=== PATIENT | female | born 1955 | race Two or more races ===

== ENCOUNTER 2022-09-21 21:09 | Inpatient (IN) | payer MEDICAID ==
[~2022-09-21] VITALS: Ht 157.5 cm; Wt 65.8 kg
--- NOTE | 2022-09-21 21:30 | NUR ---
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 TOLERATING R/A WELL WITH NO RESP DISTRESS. RR EVEN AND NON LABORED. AMBULATORY WITH STEADY GAIT. CONNECTED PT TO POX AND MONITOR. SAFETY MEASURES IN PLACE.
[2022-09-21] MEDS ORDERED: ONDANSETRON HCL/PF 4 MG/2 ML VIAL ONE (21:36)
--- NOTE | 2022-09-21 21:51 | NUR ---
LAC #18G S/L BLOOD COLLECTED AND SENT TO LAB
[2022-09-21 21:54] LABS: BASOPHILS # (AUTO) 0.1 K/uL (0.0-0.2); BASOPHILS % (AUTO) 0.4 % (0.0-2.0); EOSINOPHILS % (AUTO) 0.9 % (0.0-6.0); HEMATOCRIT 34 % (33-45); HEMOGLOBIN 11.3 g/dL (11.5-14.8); LYMPHOCYTES # (AUTO) 2.8 K/uL (0.8-4.8); LYMPHOCYTES % (AUTO) 21.1 % (20.0-44.0); MEAN CORPUSCULAR HGB CONC 33 g/dl (31.0-36.0); MEAN CORPUSCULAR VOLUME 93 fL (82-100); MONOCYTES # (AUTO) 0.7 K/uL (0.1-1.30); NEUTROPHILS # (AUTO) 9.5 K/uL (1.8-8.9); NEUTROPHILS % (AUTO) 72.6 % (43.0-81.0); PLATELET COUNT (AUTO) 323 K/uL (150-450); WHITE BLOOD COUNT (AUTO) 13.1 K/uL (4.3-11.0)
[2022-09-21] MEDS ORDERED: ONDANSETRON HCL/PF 4 MG/2 ML VIAL IVP ONE (22:00)
[2022-09-21] MEDS ORDERED: IV NS 0.9% 1,000 ML BAG IV ONE (22:00)
[2022-09-21 22:13] LABS: ALANINE AMINOTRANSFERASE 13 U/L (12-78); ALBUMIN 3.4 g/dL (3.4-5.0); ALKALINE PHOSPHATASE 75 U/L (46-116); ASPARTATE AMINOTRANSFERASE 16 U/L (15-37); BILIRUBIN,DIRECT 0.1 mg/dL (0.0-0.2); BILIRUBIN,TOTAL 0.3 mg/dL (0.2-1.0); CARBON DIOXIDE 25 mmol/L (21-32); CHLORIDE 103 mmol/L (98-107); CREATININE 0.8 mg/dL (0.6-1.3); GLUCOSE 208 mg/dL (74-106); LIPASE 115 U/L (73-393); POTASSIUM 3.2 mmol/L (3.5-5.1); SODIUM SERUM 137 mmol/L (136-145); TOTAL PROTEIN, SERUM 6.3 g/dL (6.4-8.2); UREA NITROGEN, BLOOD 12 mg/dL (7-18)
--- NOTE | 2022-09-21 22:22 | NUR ---
URINE COLLECTED AND SENT TO LAB
[2022-09-21 22:54] LABS: BILIRUBIN,URINE NEGATIVE (NEGATIVE); COLOR,URINE YELLOW (YELLOW); LEUKOCYTE ESTERASE ,URINE NEGATIVE (NEGATIVE); NITRITE, URINE NEGATIVE (NEGATIVE); PROTEIN,URINE TRACE mg/dl (NEGATIVE); UGLUCOSE NEGATIVE (NEGATIVE); UROBILINOGEN,URINE 0.2 EU/dL (0.2)
[2022-09-21 22:59] LABS: BACTERIA,URINE Rare /HPF (None Seen); RBC,URINE 0-2 /HPF (0-2); SQUAMOUS EPITHELIAL CELL,UR Few /HPF (None Seen); WBC,URINE 0-2 /HPF (0-3)
--- NOTE | 2022-09-21 23:27 | NUR ---
UPDATED FOZIA (SON) [phone]
--- NOTE | 2022-09-22 00:42 | NUR ---
LENS COATER AT PT'S BEDSIDE
--- NOTE | 2022-09-22 01:33 | NUR ---
COVID ANTIGEN SWAB COLLECTED AND SENT TO LAB
[2022-09-22] MEDS ORDERED: POTASSIUM CHLORIDE 20 MEQ TAB.PRT.SR PO ONE ×2 (01:41→02:00)
[2022-09-22] MEDS ORDERED: ONDANSETRON HCL/PF 4 MG/2 ML VIAL IVP PRN (03:00)
[2022-09-22] MEDS ORDERED: MAGNESIUM HYDROXIDE 30 ML UDC PO PRN (03:00)
[2022-09-22] MEDS ORDERED: Z GUARD REMEDY 4 OZ OINT TP PRN (03:00)
[2022-09-22] MEDS ORDERED: HYDROCODONE/APAP 5/325MG TABLET PO PRN (03:00)
[2022-09-22] MEDS ORDERED: MAG HYDROX/AL HYDROX/SIMETH 30 ML UDC PO PRN (03:00)
[2022-09-22] MEDS ORDERED: LORAZEPAM INJ 2 MG/ML VIAL IV PRN (03:00)
[2022-09-22] MEDS ORDERED: ACETAMINOPHEN 325 MG TABLET ONE (03:35)
[2022-09-22] MEDS: ACETAMINOPHEN 325 MG TABLET PO PRN ×2 (03:40→16:16)
--- NOTE | 2022-09-22 03:40 | NUR ---
HEADACHE PAIN MEDS PT C/O OF H/A. ADMINISTERED TYLENOL 650MG PO PRN ORDERED. WILL REASSESS FOR PAIN.
--- NOTE | 2022-09-22 07:15 | NUR ---
COMMISSIONING EDITOR PT FROM [facility] RN PT AWAKE AND ALERT REWSPIRATION SPONT AND EASY
[2022-09-22] MEDS: PANTOPRAZOLE 40 MG TABLET.DR PO SCH (07:30)
--- NOTE | 2022-09-22 08:11 | NUR ---
WATING FOR ROOM
[2022-09-22] MEDS ORDERED: LOSA25TA27 PO (08:13)
[2022-09-22] MEDS ORDERED: METF-441 PO (08:13)
[2022-09-22] MEDS ORDERED: ATOR10TA PO (08:13)
--- NOTE | 2022-09-22 08:51 | NUR ---
GOT BED 307-2
[2022-09-22] MEDS ORDERED: PANTOPRAZOLE 40 MG TABLET.DR PO ONE (08:53)
--- NOTE | 2022-09-22 09:06 | NUR ---
HAND OFF KATIA HOLLY TO ROOM 307-2 VIA ROSALIE ORTIZ VS TOLORATED PO INTACK NO N/V
[2022-09-22 09:30] VITALS: BP 148/75
--- NOTE | 2022-09-22 09:30 | NUR ---
ELECTRICIAN OFFICESENIOR ELECTRICAL PROJECT MANAGER NOTES RECEIVED PATIENT FROM ER ENDORSED BY AVNI THAYER VIA STRETCHER. PATIENT IS AWAKE AND A/O X4, SLOVENIAN SPEAKING. ON ROOM AIR TOLERATING WELL. NO SOB NOTED. NOT IN DISTRESS. WITH NO COMPLAINTS OF PAIN OR DISCOMFORT AT THIS TIME. WITH IV ACCESS AT THE LEFT AC G18 SALINE LOCKED, PATENT AND INTACT. SKIN IS INTACT. PATIENT IS AMBULATORY. ON TELE MONITOR CURRENTLY READING SINUS RHYTHM AT 70BPM. SAFETY MEASURES IN PLACED. CALL LIGHT WITHIN REACH. BED ON LOWEST LOCKED POSITION, SIDE RAILS UP X2. WILL CONTINUE TO MONITOR.
[2022-09-22] MEDS ORDERED: MORPHINE SULFATE INJ 4 MG/ML DISP.SYRIN IV PRN (10:00)
[2022-09-22] MEDS: IV NS 0.9% 1,000 ML IV PRN (10:47)
[2022-09-22] MEDS ORDERED: DEXTROSE 50%-WATER 50 ML DISP.SYRIN IV PRN (13:30)
[2022-09-22] MEDS: BLOOD SUGAR DIAGNOSTIC 1 EACH STRIP IN SCH ×2 (17:25→21:48)
[2022-09-22] MEDS: INSULIN REGULAR, HUMAN 100 UNIT/ML 3 ML VIAL SQ PRN ×2 (17:25→21:48)
--- NOTE | 2022-09-22 18:21 | NUR ---
SUPPORTIVE EMPLOYMENT CASE MANAGER CLOSING NOTES PATIENT RESTING ON BED AND A/O X4, THAI SPEAKING. ON ROOM AIR TOLERATING WELL. NO SOB NOTED. NOT IN DISTRESS. WITH NO COMPLAINTS OF PAIN OR DISCOMFORT AT THIS TIME. WITH IV ACCESS AT THE LEFT AC G18 WITH IVF NS AT 75ML/HR INFUSING WELL. ON TELE MONITOR CURRENTLY READING SINUS RHYTHM AT 62BPM. DUE MEDS GIVEN. SAFETY MEASURES IN PLACED. CALL LIGHT WITHIN REACH. BED ON LOWEST LOCKED POSITION, SIDE RAILS UP X2. WILL ENDORSE TO NEXT SHIFT FOR RICARDO.
--- NOTE | 2022-09-22 19:35 | NUR ---
RN OPENING NOTES RECEIVED PT IN BED, AWAKE, WITH AT BEDSIDE. AOx4, ABLE TO MAKE NEEDS KNOWN. ON RA AND TOLERATING WELL. NO SOB NOTED. NO S/SX OF RESPIRATORY DISTRESS NOTED. TELE MONITOR DETECTS SINUS RHYTHM. IV ACCESS IN LAC #18G RUNNING NS @ 75 ML/HR. SAFETY PRECAUTIONS IN PLACE: BED IN LOWEST, LOCKED POSITION, SIDERAILS UPx2, AND BRAKES ON. TABLE AND CALL LIGHT WITHIN REACH. ALL NEEDS MET AT THIS TIME.
[2022-09-22 20:00] VITALS: BP 137/55
[2022-09-22] MEDS ORDERED: ATORVASTATIN 10 MG TABLET PO SCH (22:00)
[2022-09-23] VITALS: BP 126/64
[2022-09-23] MEDS: IV NS 0.9% 1,000 ML IV PRN (02:59)
[2022-09-23 04:00] VITALS: BP 143/53
[2022-09-23 05:45] LABS: BASOPHILS % (AUTO) 0.5 % (0.0-2.0); HEMATOCRIT 32 % (33-45); HEMOGLOBIN 10.9 g/dL (11.5-14.8); LYMPHOCYTES % (AUTO) 26.6 % (20.0-44.0); MEAN CORPUSCULAR HGB CONC 34 g/dl (31.0-36.0); MEAN CORPUSCULAR VOLUME 94 fL (82-100); MONOCYTES # (AUTO) 0.5 K/uL (0.1-1.30); NEUTROPHILS # (AUTO) 4.7 K/uL (1.8-8.9); NEUTROPHILS % (AUTO) 62.9 % (43.0-81.0); PLATELET COUNT (AUTO) 285 K/uL (150-450); RED BLOOD CELL COUNT(AUTO) 3.45 MIL/uL (4.0-5.2); WHITE BLOOD COUNT (AUTO) 7.5 K/uL (4.3-11.0)
[2022-09-23 06:09] LABS: CALCIUM, SERUM 8.1 mg/dL (8.5-10.1); CREATININE 0.8 mg/dL (0.6-1.3); PHOSPHORUS 3.4 mg/dL (2.5-4.9); POTASSIUM 3.9 mmol/L (3.5-5.1)
[2022-09-23] MEDS: BLOOD SUGAR DIAGNOSTIC 1 EACH STRIP IN SCH ×2 (06:30→12:00)
[2022-09-23] MEDS: INSULIN REGULAR, HUMAN 100 UNIT/ML 3 ML VIAL SQ PRN (06:31)
--- NOTE | 2022-09-23 06:39 | NUR ---
RN CLOSING NOTES PT IN BED, ASLEEP, AWAKENS TO VERBAL STIMULI. AOx4, ABLE TO MAKE NEEDS KNOWN. ON RA AND TOLERATING WELL. NO SOB NOTED. NO S/SX OF RESPIRATORY DISTRESS NOTED. TELE MONITOR DETECTS SINUS RHYTHM. IV ACCESS IN LAC #18G RUNNING NS @ 75 ML/HR. ALL ORDERS CARRIED OUT. ALL NEEDS MET. PT KEPT CLEAN AND DRY. PROVIDED PATIENT WITH EDUCATION. ALL QUESTIONS ANSWERED SATISFACTORILY. SAFETY PRECAUTIONS IN PLACE: BED IN LOWEST, LOCKED POSITION, SIDERAILS UPx2, AND BRAKES ON. TABLE AND CALL LIGHT WITHIN REACH. WILL ENDORSE TO ONCOMING SHIFT FOR RICARDO.
[2022-09-23 06:48] LABS: THYROID STIMULATING HORMONE 2.383 uIU/mL (0.358-3.74)
[2022-09-23 07:00] VITALS: BP 138/80
[2022-09-23 08:00] VITALS: BP 138/80
[2022-09-23] MEDS: PANTOPRAZOLE 40 MG TABLET.DR PO SCH (08:36)
[2022-09-23] MEDS ORDERED: LOSARTAN POTASSIUM 25 MG TABLET PO SCH (09:00)
[2022-09-23 12:00] VITALS: BP 131/65
[2022-09-23 16:00] VITALS: BP 137/73
== END 2022-09-23 18:37 | disposition home or self-care (01) | DRG 249 ==
LOC: ER 21:21 → TELE 09-22 09:22
PROVIDERS: ADMIT Student in an Organized Health Care Education/Training Program; ATTEND Student in an Organized Health Care Education/Training Program
DX: A08.4 Viral intestinal infection, unspecified (principal); D64.9 Anemia, unspecified; D72.829 Elevated white blood cell count, unspecified; E11.9 Type 2 diabetes mellitus without complications; E87.6 Hypokalemia; I10 Essential (primary) hypertension; Z82.3 Family history of stroke; R77.8 Other specified abnormalities of plasma proteins
CPT/HCPCS: 36415; 80048-TC; 80061-TC; 80076-TC; 81001; 82962-TC; 83690-TC; 83735-TC; 84100-TC; 84443-TC; 84484-TC; 85025-TC; 87081-TC; C9803; G0378; J1815; J2405; J3490; J7030